=== PATIENT | female | born 1965 | race Caucasian/White ===

== ENCOUNTER 2016-12-02 18:34 | Inpatient (IN) | payer MEDICAID ==
[~2016-12-02] VITALS: Ht 165.1 cm; Wt 77.1 kg
[2016-12-02 18:51] VITALS: BP 106/49
--- NOTE | 2016-12-02 21:26 | NUR ---
TO ER BED 7
[2016-12-02] MEDS ORDERED: NACL 0.9% 1,000 ML IV ONE (21:30)
[2016-12-02] MEDS ORDERED: KETOROLAC 30 MG/ML VIAL IVP ONE (21:30)
--- NOTE | 2016-12-02 21:30 | NUR ---
PT IS 51Y/F C/O EPIGASTRIC PAIN 10/10 SINCE YESTERDAY.
[2016-12-02] MEDS ORDERED: ONDANSETRON 4 MG/2 ML VIAL IVP ONE (22:05)
[2016-12-02] MEDS ORDERED: fentaNYL 0.05 MG/ML VIAL IVP ONE (22:05)
[2016-12-02] MEDS ORDERED: ACETAMINOPHEN 325 MG TAB PO PRN (22:30)
[2016-12-02] MEDS ORDERED: ONDANSETRON 4 MG/2 ML VIAL IVP PRN (22:30)
[2016-12-02] MEDS: NACL 0.9% 1,000 ML IV SCH (22:35)
--- NOTE | 2016-12-02 22:40 | NUR ---
Patient will be admitted to care of DR. BRANNON. Admited to TELEMETRY. Will go to room 123B. Belongings list completed. Report to NERY STEVE.
--- NOTE | 2016-12-02 23:08 | NUR ---
RECEIVED FROM ER PER [place] AWAKE AND ALERT. NO SOB. ADMITTED FOR DX. OF PANCREATITIS AND CHOLECYSTITIS. SKIN INTACT. IVF SITE TO RAC#20. PATENT AND NO INFILTRATION NOTED. TELEMETRY MONITORING. SKIN INTACT. NO EDEMA NOTED. CARE PLANS FOR THE NIGHT DISCUSSED WITH HER AND ORIENTED TO CALL LIGHT USE FOR ANY HELP OR IF IN PAIN SHE MIGHT HAVE. RAPID RESPONSE EXPLAINED TO HER . AMBULATING WELL. VERY INDEPENDENT. ROM X 4. CLEAR SPEECH. DENIES ANY PAIN AT THIS TIME. MEDICATED IN ER WITH PAIN RELIEVER.
[2016-12-03 00:20] VITALS: BP 107/58
[2016-12-03] MEDS ORDERED: INFLUENZA VIRUS VACCINE QUAD 0.5 ML SYR IMVAC PRN (01:15)
--- NOTE | 2016-12-03 01:19 | NUR ---
PT. SLEEPING. NO RESTLESSNESS NOTED. CALL LIGHT WITH IN REACH. TELEMETRY MONITORING.
--- NOTE | 2016-12-03 04:07 | NUR ---
SLEEPING. NO RESTLESSNESS NOTED. NO ABDOMINAL PAIN COMPLAINTS SINCE ADMISSION. ABLE TO USE CALL LIGHT FOR HELP.
--- NOTE | 2016-12-03 04:24 | NUR ---
URINE SPECIMEN COLLECTED AND SENT TO LAB.
[2016-12-03 05:56] VITALS: BP 101/50
[2016-12-03] MEDS ORDERED: KETOROLAC 30 MG/ML VIAL IM PRN (06:50)
--- NOTE | 2016-12-03 07:24 | NUR ---
ENDORSED TO THE NEXT RN FOR CONTINUITY OF CARE.
--- NOTE | 2016-12-03 07:30 | NUR ---
RECEIVED PT RESTING COMFORTABLY IN BED, AAOX4, ABLE TO VERBALIZE NEEDS; NO COMPLAINTS OF PAIN, SOB, OR S/S ACUTE DISTRESS AT THIS TIME. ROUTINE/PLAN OF CARE DISCUSSED AND REVIEWED, PT VERBALIZES UNDERSTANDING AND COMPLIANCE. IVF INFUSING TO RIGHT AC, SITE ASYMPTOMATIC. SAFETY PRECAUTIONS OBSERVED AND MAINTAINED, ENCOURAGED PT TO CALL FOR ASSISTANCE NEEDED.
[2016-12-03 08:00] VITALS: BP 92/53
[2016-12-03] MEDS: NACL 0.9% 1,000 ML IV SCH ×3 (08:00→21:20)
--- NOTE | 2016-12-03 08:00 | NUR ---
PATIENT HAS BEEN SCREENED AND CATEGORIZED MODERATE NUTRITION RISK. PATIENT WILL BE SEEN WITHIN 3-5 DAYS OF ADMISSION. 12/05/16-12/07/[address]
[2016-12-03] MEDS: FAMOTIDINE 20 MG TAB PO SCH (08:45)
[2016-12-03] MEDS: DOCUSATE SODIUM 100 MG GELCAP PO SCH (08:45)
--- NOTE | 2016-12-03 08:48 | NUR ---
VSS. ADMINISTERED ROUTINE MEDS ORDERED WITH EDUCATION, PT TOLERATED WELL. VERBALIZES TOLERABLE LEVEL OF PAIN AT THIS TIME, INSTRUCTED PT TO NOTIFY STAFF IF PAIN WORSENS. SIGNIFICANT OTHER AT BEDSIDE. RESIDENT MD AT BEDSIDE FOR EVAL. WILL CONTINUE TO MONITOR.
[2016-12-03 12:00] VITALS: BP 98/49
--- NOTE | 2016-12-03 12:00 | NUR ---
VSS. NO COMPLAINTS OF PAIN OR S/S ACUTE DISTRESS AT THIS TIME.
--- NOTE | 2016-12-03 14:00 | NUR ---
PT RESTING QUIETLY IN BED.
--- NOTE | 2016-12-03 15:54 | NUR ---
SPOKE WITH DR MANRIQUEZ REGARDING CONSULTATION, DISCUSSED PT CONDITION AND PLAN OF CARE. ARLIN ENTERED AND CARRIED OUT.
[2016-12-03 16:00] VITALS: BP 98/53
[2016-12-03] MEDS: KETOROLAC 30 MG/ML VIAL IVP PRN (16:29)
--- NOTE | 2016-12-03 16:30 | NUR ---
CT DONE. MEDICATED WITH TORADOL IVP, SEE PAIN ASSESSMENT.
--- NOTE | 2016-12-03 19:10 | NUR ---
RECEIVED REPORT FROM POWER CAMPBELL AT BEDSIDE. INITIAL ASSESSMENT COMPLETED. PT AAOX4. PT DENIES PAIN AT THIS TIME. PT'S SKIN IS INTACT. PT HAS IV TOT RIGHT AC G 20; ASYMPTOMATIC, PATENT AND INTACT INFUSING FLUIDS WELL. PT'S FAMILY MEMBER AT BEDSIDE. ORIENTED PT TO ROOM AND SURROUNDINGS AND USE OF CALL LIGHT. EXPLAINED PLAN OF CARE TO PT AND SHE VERBALIZES UNDERSTANDING. WILL CONTINUE TO MONITOR PT.
--- NOTE | 2016-12-03 19:24 | NUR ---
STABLE CONDITION. ENDORSED PLAN OF CARE TO LITHOGRAPHIC ARTIST.
[2016-12-03] MEDS: CALCIUM CARBONATE 500 MG TAB PO SCH (21:11)
--- NOTE | 2016-12-03 21:12 | NUR ---
PT TOLERATED 2100 MED WELL, WILL CONTINUE TO MONITOR PT.
--- NOTE | 2016-12-03 23:05 | NUR ---
PT REQUESTING TO GET IV DISCONNECTED TO AMBULATED TO THE RESTROOM. PT DENIES PAIN AT THIS TIME. WILL CONTINUE TO MONITOR PT.
[2016-12-04] VITALS: BP 112/67
--- NOTE | 2016-12-04 00:56 | NUR ---
PT COMPLAINING OF PAIN ON LOWER BACK 05/05. VS 112/67, HR 80, T 98.0, 02 SAT 97%. WILL MEDICATE ORDERED.
[2016-12-04] MEDS: MORPHINE SULFATE 2 MG/ML SYR IVP PRN ×4 (01:00→23:54)
[2016-12-04] MEDS: NACL 0.9% 1,000 ML IV SCH ×3 (01:08→17:20)
--- NOTE | 2016-12-04 03:01 | NUR ---
PT SLEEPING, NO SIGNS OF DISTRESS OR DISCOMFORT NOTED. WILL CONTINUE TO MONITOR PT. CALL LIGHT WITHIN REACH.
--- NOTE | 2016-12-04 04:02 | NUR ---
PT COMPLAINING OF LOWER BACK PAIN 05/05, VS STABLE, WILL MEDICATE ORDERED.
[2016-12-04] MEDS: KETOROLAC 30 MG/ML VIAL IVP PRN ×2 (04:04→20:08)
--- NOTE | 2016-12-04 06:41 | NUR ---
PT AWAKE, PT STATES THAT SHE FEELS BETTER. PT DENIES PAIN AT THIS TIME, WILL CONTINUE TO MONITOR PT.
--- NOTE | 2016-12-04 07:22 | NUR ---
ENDORSED PT IN STABLE CONDITION TO POWER GONZALEZ FOR CONTINUITY OF CARE.
--- NOTE | 2016-12-04 07:23 | NUR ---
RECEIVED REPORT FROM THE INSURANCE CONSULTANT NURSE AT BEDSIDE. PT IS ALERT AND ORIENTED. PT IS [place] SPEAKING. VERY LITTLE MALDIVIAN. I INTRODUCED MYSELF. PT DOES NOT HAVE ANY PAIN IN THE ABDOMEN. PT DENIES PAIN OVER ALL. PT IS WONDERING WHEN DR. MANRIQUEZ WILL BE HERE. SHE IS HUNGRY. PT HAS IV ON R AC 20 NS AT 150 ML. PT HAS SKIN INTACT. NO SIGNS OF DISTRESS. SAFETY MEASURES IN PLACE. ALL NEEDS MET. WILL BE BACK TO FURTHER ASSESS PT.
[2016-12-04 08:00] VITALS: BP 97/55
--- NOTE | 2016-12-04 08:05 | NUR ---
V/S WITHIN NORMAL RANGE. PT IS AMBULATING AROUND THE ROOM. PT REQUEST TO TAKE A SHOWER. WILL CONTINUE TO MONITOR PT.
--- NOTE | 2016-12-04 08:30 | NUR ---
GAVE PT FRESH TOWELS, SHOWER GEL, AND NEW GOWN AND NEW SOCKS. HL THE IV. WRAPPED IT IN PLASTIC AND TAPED IT UP.
--- NOTE | 2016-12-04 08:45 | NUR ---
CAME BACK FROM SHOWER. REMOVED PLASTIC AND TAPE FROM IV SITE. READMINISTERED IV. PT BACK IN BED. NO SIGNS OF DISTRESS. NO COMPLAINTS. WILL CONTINUE TO MONITOR PT.
[2016-12-04] MEDS: FAMOTIDINE 20 MG TAB PO SCH (08:55)
[2016-12-04] MEDS: DOCUSATE SODIUM 100 MG GELCAP PO SCH (08:55)
[2016-12-04] MEDS: CALCIUM CARBONATE 500 MG TAB PO SCH ×2 (08:55→20:11)
--- NOTE | 2016-12-04 09:30 | NUR ---
SPOKE TO RESIDENT RE PT'S LOW POTASSIUM LEVEL AND MAG LEVEL. WILL PUT IN ORDERS.
[2016-12-04] MEDS ORDERED: MAG SULF 2000 MG/WATER PREMIX 50 ML IV SCH (11:00)
--- NOTE | 2016-12-04 11:05 | NUR ---
ADMINISTERED MAG RIDER FOR HER LOW MAG AT 1.7. PT TOLERATING WELL.
--- NOTE | 2016-12-04 13:15 | NUR ---
PT C/O OF SEVERE ABDOMINAL PAIN. 06/05. I ADMINISTERED MORPHINE 2MG. WILL REASSESS SOON.
[2016-12-04] MEDS ORDERED: KCL 20 MEQ/WATER INJ PREMIX 100 ML IV SCH (14:00)
--- NOTE | 2016-12-04 14:27 | NUR ---
PT IS SLEEPING SOUNDLY. NO SIGNS OF DISTRESS. WILL CONTINUE TO MONITOR PT.
[2016-12-04] MEDS: HYDROcodone/APAP 7.5/325 MG 1 TAB PO PRN (14:41)
[2016-12-04] MEDS: LEVOFLOXACIN 750 MG/D5W PREMIX 150 ML IV SCH (15:30)
[2016-12-04 16:14] VITALS: BP 90/45
[2016-12-04] MEDS ORDERED: MAGNESIUM OXIDE 400 MG TAB PO SCH (16:45)
--- NOTE | 2016-12-04 17:00 | NUR ---
PT SLEEPING SOUNDLY. NO SIGNS OF DISTRESS. WILL CONTINUE TO MONITOR PT.
[2016-12-04] MEDS: TAMSULOSIN 0.4 MG CAP PO SCH (17:33)
[2016-12-04] MEDS ORDERED: SODIUM PHOS / POTASSIUM PHOS 1 PKT PDR PO SCH (17:45)
--- NOTE | 2016-12-04 19:15 | NUR ---
ENDORSED TO THE HYDRAULIC BILLET MAKER NURSE AT BEDSIDE FOR CONTINUITY OF CARE. PT IS STABLE. PT IS IN PAIN. WAITING FOR HER NORCO. EXPLAINED TO HER THAT IT IS EVERY 6 HRS. NEED TO WAIT UNTIL 2040. PT AWARE.
--- NOTE | 2016-12-04 19:28 | NUR ---
RECEIVED REPORT FROM POWER GONZALEZ, AT BEDSIDE. INITIAL ASSESSMENT AND BODY CHECK DONE. PATIENT AAO X 4, ABLE TO FOLLOW COMMAND AND MAKE KNOWN AND AMBULATORY BY SELF WITH STEADY GAIT. NO S/S OF DISTRESS OR SOB NOTED. SKIN WARM/DRY TO TOUCH WITH NORMAL COLOR AND INTACT. PATIENT STILL C/O LOWER ABDOMINAL PAIN, 8/10, AT THIS TIME. DISCUSSED PLAN OF CARE, PAIN MANAGEMENT AND MEDICATION REGIMEN WITH PATIENT AND PATIENT VERBALIZED UNDERSTANDING. PLACED PATIENT ON SAFETY PRECAUTIONS AND WILL CONTINUE TO MONITOR. CALL LIGHT LEFT WITHIN REACH.
[2016-12-04 20:00] VITALS: BP 109/59
--- NOTE | 2016-12-04 21:30 | NUR ---
ADMINISTERED DUE AND PAIN MEDICATIONS MD'S ORDERED WITH EDUCATION GIVEN. PATIENT TOLERATED WELL AND STATED WITH SOME PAIN RELIEF AFTER POST-MEDICATION. PATIENT ABLE TO REST COMFORTABLY IN BED AND ALL NEEDS ARE ATTENDED. WILL CONTINUE TO MONITOR.
[2016-12-05] VITALS: BP 100/42
--- NOTE | 2016-12-05 00:42 | NUR ---
PATIENT RESTED QUIETLY IN BED. V/S REMAINED WNL AND NO S/S OF DISTRESS NOTED. PAIN SYMPTOM HAS BEEN STABILIZED AND UNDER CONTROL. WILL CONTINUE TO MONITOR.
[2016-12-05] MEDS: HYDROcodone/APAP 7.5/325 MG 1 TAB PO PRN ×3 (01:50→15:05)
[2016-12-05] MEDS: NACL 0.9% 1,000 ML IV SCH ×4 (01:57→20:00)
[2016-12-05] MEDS: KETOROLAC 30 MG/ML VIAL IVP PRN ×2 (03:07→18:49)
--- NOTE | 2016-12-05 03:30 | NUR ---
PATIENT RESTED COMFORTABLY IN BED WITH EVEN AND UNLABORED RESPIRATORY RATE. NO CHANGE IN CONDITION NOTED.
--- NOTE | 2016-12-05 07:09 | NUR ---
ENDORSED PLAN OF CARE TO POWER GONZALEZ, AT BEDSIDE. PATIENT REMAINED IN STABLE CONDITION AND NO S/S OF DISTRESS NOTED.
--- NOTE | 2016-12-05 07:10 | NUR ---
RECEIVED REPORT FROM THE NIGHTSHIFT NURSE AT BEDSIDE. PT IS ALERT AND ORIENTED. I RE INTRODUCED MYSELF AND UPDATE THE BOARD. PT DOES NOT HAVE ANY PAIN AT THIS TIME. NO OTHER COMPLAINTS. IV STILL INTACT AND PATENT. R AC 20G NS 150ML/HR. TODAY, SHE WILL HAVE A HIDA SCAN. SHE IS NPO UNTIL THEN. I EXPLAINED TO THE PT. WILL CONTINUE TO MONITOR PT.
[2016-12-05 08:00] VITALS: BP_SYST 102; BP_SYST 109; BP_DIAS 61; BP_DIAS 64
[2016-12-05] MEDS: CALCIUM CARBONATE 500 MG TAB PO SCH ×2 (08:48→20:20)
[2016-12-05] MEDS: FAMOTIDINE 20 MG TAB PO SCH (08:48)
[2016-12-05] MEDS: TAMSULOSIN 0.4 MG CAP PO SCH (08:48)
[2016-12-05] MEDS: DOCUSATE SODIUM 100 MG GELCAP PO SCH (08:48)
--- NOTE | 2016-12-05 08:50 | NUR ---
ADMINISTERED MORNING MEDS. PT TOLERATED WELL. INCLUDED HER NORCO FOR ABDOMINAL PAIN.
--- NOTE | 2016-12-05 09:25 | NUR ---
NUCLEAR MED IS HERE TO ELECTRONICS SUPERVISOR PT TO HAVE HER HIDA SCAN. HEP LOCK PT. SHE IS GOOD TO GO.
--- NOTE | 2016-12-05 10:10 | NUR ---
BACK ON THE FLOOR. PT AMBULATED TO THE RESTROOM. SHE IS BACK IN BED, COMFORTABLE. NO COMPLAINTS AT THIS TIME. WILL CONTINUE TO MONITOR PT.
--- NOTE | 2016-12-05 12:00 | NUR ---
WENT BACK TO RADIOLOGY TO TAKE DELAYED FINAL PICTURE. WHEEL CHAIRED PT.
--- NOTE | 2016-12-05 15:05 | NUR ---
PT C/O OF PAIN. ADMINISTERED PAIN MEDS. PT TOLERATED WELL. WILL CONTINUE TO ASSESS PT.
[2016-12-05] MEDS: LEVOFLOXACIN 750 MG/D5W PREMIX 150 ML IV SCH (15:08)
[2016-12-05 16:00] VITALS: BP 103/55
--- NOTE | 2016-12-05 16:00 | NUR ---
PT IS VISITING WITH FRIENDS AND FAMILY. NO SIGNS OF DISTRESS. NO COMPLAINTS. WILL CONTINUE TO MONITOR PT.
--- NOTE | 2016-12-05 18:22 | NUR ---
PT IS RESTING COMFORTABLY IN BED. NO SIGNS OF DISTRESS. NO COMPLAINTS. WILL CONTINUE TO MONITOR PT.
--- NOTE | 2016-12-05 19:10 | NUR ---
ENDORSED PT TO THE PHOTOCOPIER TECHNICIAN NURSE AT BEDSIDE FOR CONTINUITY OF CARE. PT IS IN STABLE CONDITION.
--- NOTE | 2016-12-05 19:28 | NUR ---
RECEIVED REPORT FROM POWER GONZALEZ, AT BEDSIDE. INITIAL ASSESSMENT AND BODY CHECK DONE. PATIENT AAO X 4, ABLE TO FOLLOW COMMAND AND MAKE KNOWN AND AMBULATORY BY SELF WITH STEADY GAIT. PATIENT CURRENTLY LYING DOWN ON THE BED. NO S/S OF DISTRESS OR SOB NOTED. SKIN WARM/DRY TO TOUCH WITH NORMAL COLOR AND INTACT. PATIENT STATED PAIN RELIEF AFTER POST-MEDICATION. DISCUSSED PLAN OF CARE, PAIN MANAGEMENT AND MEDICATION REGIMEN WITH PATIENT AND PATIENT VERBALIZED UNDERSTANDING. PLACED PATIENT ON SAFETY PRECAUTIONS AND WILL CONTINUE TO MONITOR. CALL LIGHT LEFT WITHIN REACH.
[2016-12-05 20:00] VITALS: BP 112/64
--- NOTE | 2016-12-05 20:36 | NUR ---
ADMINISTERED DUE MEDICATION MD'S ORDERED WITH EDUCATION GIVEN. PATIENT COMPLYING WITH MEDICATION AND TOLERATE WELL. KEPT PATIENT IN COMFORTABLE POSITION/WARM AND WILL CONTINUE TO MONITOR.
--- NOTE | 2016-12-05 23:10 | NUR ---
ROUNDS MADE, SEEN PATIENT RESTED COMFORTABLY IN BED WITHOUT S/S OF DISTRESS NOTED.
[2016-12-06] VITALS: BP 112/84
[2016-12-06] MEDS: NACL 0.9% 1,000 ML IV SCH ×3 (00:03→16:00)
--- NOTE | 2016-12-06 00:37 | NUR ---
PATIENT C/O ABDOMINAL PAIN AFTER CAME BACK FROM THE RESTROOM. GAVE 2 MG PRN MORPHINE IVP. THEN, AFTER 30 MINS POST-MEDICATION, PATIENT STATED WITH SOME PAIN RELIEF AND ABLE TO REST COMFORTABLY ON THE BED. V/S REMAINED WNL. WILL CONTINUE TO MONITOR.
[2016-12-06] MEDS: KETOROLAC 30 MG/ML VIAL IVP PRN (03:49)
--- NOTE | 2016-12-06 04:10 | NUR ---
PATIENT WOKE UP AND C/O LEFT LOWER BACK PAIN, 05/05. MEDICATED WITH PAIN MEDICATION. PATIENT MADE AWARE THE CANCELATION OF SURGERY THIS MORNING BY DR. MANRIQUEZ. WILL CONTINUE TO MONITOR.
--- NOTE | 2016-12-06 07:25 | NUR ---
ENDORSED PLAN OF CARE TO POWER CAMPBELL, AT BEDSIDE. PATIENT REMAINED IN STABLE CONDITION AND NO APPARENT DISTRESS NOTED.
--- NOTE | 2016-12-06 07:30 | NUR ---
RECEIVED PT AWAKE IN BED, AAOX4, ABLE TO VERBALIZE NEEDS. NO C/O OF PAIN, N/V OR S/S ACUTE DISTRESS AT THIS TIME. PER NIGHTSHIFT, DR MANRIQUEZ CANCELLED LAP LUIS PROCEDURE AFTER NUC MED AND CT ABD/PELV SHOWED NO GALLSTONES; PAGED DR MANRIQUEZ AT THIS TIME TO CLARIFY ORDERS. ROUTINE/VENESSA OF CARE DISCUSSED AND REVIEWED, PT VERBALIZES UNDERSTANDING. IVF INFUSING WELL TO RIGHT AC, SITE ASYMPTOMATIC. SAFETY PRECAUTIONS OBSERVED AND MAINTAINED. ENCOURAGED PT TO CALL FOR ASSISTANCE NEEDED.
[2016-12-06 08:00] VITALS: BP 129/61
--- NOTE | 2016-12-06 08:15 | NUR ---
VSS. DR PUENTE MADE AWARE OF LOW POTASSIUM AND MAGNESIUM; REQUESTED MD TO SPEAK WITH PATIENT INCLUDING QUALITY TECHNICIAN FIBERGLASS IN REGARDS TO CARE PLAN DUE TO PATIENT'S QUESTIONS AND CONCERNS.
[2016-12-06] MEDS: TAMSULOSIN 0.4 MG CAP PO SCH (08:30)
[2016-12-06] MEDS: DOCUSATE SODIUM 100 MG GELCAP PO SCH (09:00)
[2016-12-06] MEDS: CALCIUM CARBONATE 500 MG TAB PO SCH ×2 (09:00→21:36)
[2016-12-06] MEDS ORDERED: KCL 20 MEQ/WATER INJ PREMIX 200 ML IV SCH (09:00)
[2016-12-06] MEDS: FAMOTIDINE 20 MG TAB PO SCH (09:00)
--- NOTE | 2016-12-06 09:15 | NUR ---
PLAN OF CARE DISCUSSED AT BEDSIDE WITH MD USING TECHNICAL OPERATIONS MANAGER. PT VERBALIZES UNDERSTANDING AND AGREES TO HAVE LAP LUIS TODAY, SCHEDULED AT [address]RIQUEZ.
[2016-12-06] MEDS: MAGNESIUM OXIDE 400 MG TAB PO SCH ×2 (10:01→21:36)
--- NOTE | 2016-12-06 10:04 | NUR ---
PER DR GREENE, OK TO GIVE PT MAG-OX PO AT THIS TIME; PT TOLERATED WELL, MEDICATION EDUCATION GIVEN. PT C/O PAIN AT IV SITE WITH PREVIOUS INFUSION OF KRIDER, REQUESTED TO ADD LIDOCAINE TO NEW ORDER OF KRIDER FROM .
[2016-12-06] MEDS ORDERED: POTASSIUM CHLORIDE 40 MEQ, LIDOCAINE 1% 25 MG in NACL 0.9% 250 ML IV SCH (10:30)
--- NOTE | 2016-12-06 12:00 | NUR ---
PT AMBULATING IN HALLWAY, STEADY GAIT NOTED.
[2016-12-06] MEDS: MORPHINE SULFATE 2 MG/ML SYR IVP PRN ×2 (12:38)
--- NOTE | 2016-12-06 12:40 | NUR ---
MEDICATED WITH MORPHINE IVP FOR C/O SEVERE LOWER BACK PAIN, SEE PAIN ASSESSMENT.
--- NOTE | 2016-12-06 14:09 | NUR ---
PT TAKEN TO OR AT THIS TIME IN STABLE CONDITION.
[2016-12-06] MEDS ORDERED: LIDOCAINE 2% 100 MG/5 ML SYR IVP ONE (14:10)
[2016-12-06] MEDS ORDERED: ROCURONIUM 50 MG/5 ML VIAL IV ONE (14:10)
[2016-12-06] MEDS ORDERED: SEVOFLURANE 250 ML BTL INH ONE (14:10)
[2016-12-06] MEDS ORDERED: NEOSTIGMINE 1:1000 10 MG/10 ML VIAL IM ONE (14:10)
[2016-12-06] MEDS ORDERED: DEXAMETHASONE 4 MG/ML VIAL IVP ONE (14:10)
[2016-12-06] MEDS ORDERED: GLYCOPYRROLATE 0.2 MG/ML VIAL IV ONE (14:10)
[2016-12-06] MEDS ORDERED: SUCCINYLCHOLINE CHLORIDE 200 MG/10 ML VIAL IV ONE (14:10)
[2016-12-06] MEDS ORDERED: ONDANSETRON 4 MG/2 ML VIAL IVP ONE (14:10)
[2016-12-06] MEDS ORDERED: PROPOFOL 200 MG/20 ML VIAL IV ONE (14:10)
[2016-12-06] MEDS ORDERED: KETOROLAC 30 MG/ML VIAL IVP ONE (14:10)
[2016-12-06] MEDS: LEVOFLOXACIN 750 MG/D5W PREMIX 150 ML IV SCH (14:11)
[2016-12-06] MEDS ORDERED: MIDAZOLAM 2 MG/2 ML VIAL ONE (14:24)
[2016-12-06] MEDS ORDERED: fentaNYL 0.05 MG/ML VIAL ONE (14:24)
[2016-12-06] MEDS ORDERED: ONDANSETRON 4 MG/2 ML VIAL IVP PRN (15:10)
[2016-12-06] MEDS ORDERED: HYDROmorphone 1 MG/ML AMP IVP PRN ×2 (15:10→16:00)
[2016-12-06] MEDS: BUPIVACAINE-MPF/EPI 0.25% 30 ML VIAL INJ ONE ×2 (15:52→15:53)
[2016-12-06] MEDS ORDERED: HYDROcodone/APAP 5/325 MG 1 TAB TAB PO PRN (16:00)
[2016-12-06] MEDS ORDERED: ACETAMINOPHEN 325 MG TAB PO PRN (16:00)
[2016-12-06] MEDS ORDERED: MORPHINE SULFATE 4 MG/ML SYR IV PRN (16:00)
[2016-12-06] MEDS ORDERED: ONDANSETRON 4 MG/2 ML VIAL IV PRN (16:00)
[2016-12-06] MEDS ORDERED: MORPHINE SULFATE 2 MG/ML SYR IVP PRN (16:00)
[2016-12-06] MEDS: HYDROmorphone PFS 2 MG/ML SYR ONE ×2 (16:26→16:36)
--- NOTE | 2016-12-06 17:00 | NUR ---
PT RETURNED FROM OR, AAOX4, VSS. O2@2L/MIN VIA NC 94-95%. POST OP EDUCATION GIVEN. CALL LIGHT IN REACH.
--- NOTE | 2016-12-06 18:40 | NUR ---
ASSISTED PT OOB TO RESTROOM, TOLERATED WELL. VSS.
--- NOTE | 2016-12-06 19:11 | NUR ---
CONDITION STABLE, ENDORSED PLAN OF CARE TO TRAFFIC ENUMERATOR RN.
--- NOTE | 2016-12-06 19:23 | NUR ---
RECEIVED REPORT FROM DAY RN FOR CONTINUITY OF CARE. PATIENT IS A&OX4, DISCUSSED PLAN OF CARE WITH PATIENT, PT ABLE TO VERBALIZE UNDERSTANDING. SHIFT ASSESSMENT DONE, VS TAKEN, STABLE. NO S/S OF RESPIRATORY DISTRESS NOTED ON 2L O2, O2 SAT 94%, PROVIDED PATIENT WITH INCENTIVE SPIROMETER AND EDUCATION, VERBALIZED UNDERSTANDING. PATIENT DENIES PAIN. IV TO RT AC 2OG PATENT AND FLUSHED. PT HAS 4 BAND AIDS TO ABDOMEN DRY AND INTACT, S/P CHOLECYSTECTOMY 12/06/16. SAFETY PRECAUTIONS ENFORCED. FAMILY MEMBER AT BEDSIDE. CALL LIGHT WITHIN REACH, WILL CONTINUE TO MONITOR. Addendum: 12/07/16 at 0048 by Avelina Sweeney RN S/P KOBE SMITH
[2016-12-06 20:00] VITALS: BP 131/78
--- NOTE | 2016-12-06 21:36 | NUR ---
DUE MEDS ADMINISTERED, TOLERATED WELL. NO S/S OF RESPIRATORY DISTRESS NOTED ON ROOM AIR AT THIS TIME. CALL LIGHT WITHIN REACH.
--- NOTE | 2016-12-06 22:15 | NUR ---
PT IS SLEEPING. NO S/S OF DISTRESS OR DISCOMFORT NOTED.
[2016-12-07] VITALS: BP 119/68
--- NOTE | 2016-12-07 00:18 | NUR ---
PT AMBULATED TO RESTROOM, VOIDED. PT C/O 05/05 ABDOMINAL PAIN, MEDICATED PER MD ORDER. VS STABLE. PATIENT USING INCENTIVE SPIROMETER SITTING AT BEDSIDE. WILL CONTINUE TO MONITOR.
--- NOTE | 2016-12-07 01:56 | NUR ---
PT IS SLEEPING. NO S/S OF DISTRESS OR DISCOMFORT NOTED. WILL CONTINUE TO MONITOR.
[2016-12-07] MEDS: NACL 0.9% 1,000 ML IV SCH (04:22)
--- NOTE | 2016-12-07 04:30 | NUR ---
PATIENT AMBULATING IN HALLWAY, TOLERATING WELL. NO S/S OF DISTRESS OR DISCOMFORT NOTED. REPLACED IV FLUIDS. PATIENT BACK IN BED MADE COMFORTABLE. CALL LIGHT WITHIN REACH.
--- NOTE | 2016-12-07 05:17 | NUR ---
IV TO RT AC LEAKING, REMOVED, CANNULA INTACT. NEW IV LINE INSERTION TO LT FOREARM 22 GAUGE PATENT AND INFUSING FLUIDS WELL.
--- NOTE | 2016-12-07 06:30 | NUR ---
PT IS SITTING UP IN BED. NO S/S OF DISTRESS OR DISCOMFORT NOTED. CALL LIGHT WITHIN REACH.
--- NOTE | 2016-12-07 07:20 | NUR ---
ENDORSED PATIENT TO DAYSHIFT RN FOR CONTINUITY OF CARE, PATIENT IS IN STABLE CONDITION.
--- NOTE | 2016-12-07 07:30 | NUR ---
RECEIVED PT RESTING COMFORTABLY IN BED, AAOX4, ABLE TO VERBALIZE NEEDS; NO COMPLAINTS OF PAIN, N/V, OR S/S ACUTE DISTRESS AT THIS TIME. S/P LAP LUIS, DRESSINGS DRY AND INTACT. ROUTINE/PLAN OF CARE DISCUSSED AND REVIEWED, PT VERBALIZES UNDERSTANDING AND COMPLIANCE. IVF INFUSING TO LEFT FA, SITE ASYMPTOMATIC. SAFETY PRECAUTIONS OBSERVED AND MAINTAINED, ENCOURAGED PT TO CALL FOR ASSISTANCE NEEDED.
[2016-12-07 08:00] VITALS: BP 110/71
[2016-12-07] MEDS: TAMSULOSIN 0.4 MG CAP PO SCH (08:59)
[2016-12-07] MEDS: FAMOTIDINE 20 MG TAB PO SCH (08:59)
[2016-12-07] MEDS: DOCUSATE SODIUM 100 MG GELCAP PO SCH (08:59)
[2016-12-07] MEDS: CALCIUM CARBONATE 500 MG TAB PO SCH (09:00)
--- NOTE | 2016-12-07 09:05 | NUR ---
VSS. ADMINISTERED ROUTINE MEDS ORDERED WITH EDUCATION. PT SHOWERED; ASSISTED PT WITH WOUND CARE, DEMONSTRATION AND VERBAL EDUCATION GIVEN. PT TOLERATED WELL. WILL CONTINUE TO MONITOR.
[2016-12-07 09:38] VITALS: BP 110/71
[2016-12-07] MEDS ORDERED: NORCO 5/325 MG1 TAB PO ×2 (09:48→09:49)
--- NOTE | 2016-12-07 10:20 | NUR ---
DR GREENE ARRANGED APPT FOR PATIENT AT [facility] IN [place] ON TUESDAY AT [address] COLEMAN; DISCHARGE Rx, INSTRUCTIONS, AND EDUCATION GIVEN AND DISCUSSED WITH PATIENT. PT MADE AWARE AND VERBALIZES COMPLIANCE. PT SIGNED ALL FORMS. DC IV WITH CANNULA INTACT SITE DRESSED WITH GAUZE AND TAPE.
[2016-12-07] MEDS ORDERED: COLACE100 M1 PO (10:46)
--- NOTE | 2016-12-07 10:55 | NUR ---
DISCHARGED PT HOME AT THIS TIME IN STABLE CONDITION WITH FAMILY MEMBERS.
== END 2016-12-07 10:55 | disposition home or self-care (01) | DRG 263 ==
LOC: MED 18:34 → MTU 22:16
PROVIDERS: ADMIT Family Medicine; ATTEND Family Medicine
PROC: BF131ZZ Fluoroscopy of Gallbladder and Bile Ducts using Low Osmolar Contrast (ICD-10-PCS; 2016-12-06)
PROC: 0FT44ZZ Resection of Gallbladder, Percutaneous Endoscopic Approach (ICD-10-PCS; principal; 2016-12-06 14:00)
DX: K85.10 Biliary acute pancreatitis without necrosis or infection (principal); N17.0 Acute kidney failure with tubular necrosis; E43 Unspecified severe protein-calorie malnutrition; N13.30 Unspecified hydronephrosis; K80.10 Calculus of gallbladder with chronic cholecystitis without obstruction; E83.51 Hypocalcemia; E87.6 Hypokalemia; D72.829 Elevated white blood cell count, unspecified; F43.9 Reaction to severe stress, unspecified; E83.42 Hypomagnesemia; E83.39 Other disorders of phosphorus metabolism; Z68.28 Body mass index [BMI] 28.0-28.9, adult; Q62.11 Congenital occlusion of ureteropelvic junction; Z83.3 Family history of diabetes mellitus; Z56.0 Unemployment, unspecified; Z84.89 Family history of other specified conditions; Z80.42 Family history of malignant neoplasm of prostate; Z82.49 Family history of ischemic heart disease and other diseases of the circulatory system